=== PATIENT | female | born 1985 | race Caucasian/White ===

== ENCOUNTER 2016-11-10 00:28 | Emergency (ER) | payer OTHER ==
[~2016-11-10] VITALS: Ht 157.5 cm; Wt 83.9 kg
[2016-11-10 00:31] VITALS: BP 147/77
--- NOTE | 2016-11-10 01:55 | NUR ---
PT TAKEN TO BED 4
--- NOTE | 2016-11-10 02:29 | NUR ---
31 Y/O F BIBA C/O LOWER BACK PAIN , STARTED TODAY, NO TRAUMA NOR INJURY.
--- NOTE | 2016-11-10 02:29 | NUR ---
Dr. Boyce evaluating patient at bedside.
[2016-11-10] MEDS ORDERED: KETOROLAC 60 MG/2 ML VIAL IM ONE (02:35)
[2016-11-10] MEDS ORDERED: DIAZEPAM PFS 10 MG/2 ML SYR IM ONE (02:35)
--- NOTE | 2016-11-10 02:55 | NUR ---
PT RESTING IN BED, AWATING FOR DC PAPERWORK, VSS, NO S/S OF DISTRESS NOTED.
[2016-11-10 02:56] VITALS: BP 124/81
--- NOTE | 2016-11-10 03:14 | NUR ---
Patient discharged with v/s stable. Written and verbal after care instructions given and explained. Patient alert, oriented and verbalized understanding of instructions. Wheel Chair Assisted with by caregiver. All questions addressed prior to discharge. ID band removed. Patient advised to follow up with PMD THIS WK OR RETURN TO ER IF CONDITION WORSENS. Rx of valium, motrin, and norco given. Patient educated on indication of medication including possible reaction and side effects. Opportunity to ask questions provided and answered.
== END 2016-11-10 03:14 | disposition home or self-care (01) ==
LOC: MED 00:28
DX: M54.5 Low back pain (principal); Z98.890 Other specified postprocedural states
CPT/HCPCS: 81002; 81025; 96372; 99284; J1885; J3360

== ENCOUNTER 2017-09-21 07:20 | Emergency (ER) | payer OTHER ==
[~2017-09-21] VITALS: Ht 157.5 cm; Wt 81.6 kg
[2017-09-21 07:25] VITALS: BP 119/76
--- NOTE | 2017-09-21 07:26 | NUR ---
PATIENT PRESENTS TO ED WITH COMPLAINTS OF RIGHT FOOT PAIN. PATIENT STATES SHE INJURED FOOT OVER A YEAR AGO AND HAS INTERMITTENT PAIN AND SWELLING SINCE. PATIENT REPORTS PAIN IS WORSENING. MILD SWELLING NOTED AROUND RIGHT ANKLE, NON-PITTING. CAP REFILL ON RIGHT BIG TOE <3 SEC. PATIENT STATES PAIN OF 9/10 AT THIS TIME; VSS; PATIENT POSITIONED FOR COMFORT; HOB ELEVATED; BEDRAILS UP X1; BED DOWN. ER MD MADE AWARE OF PT STATUS.
[2017-09-21] MEDS ORDERED: DEXAMETHASONE 10 MG/ML VIAL IM ONE (08:05)
[2017-09-21] MEDS ORDERED: KETOROLAC 60 MG/2 ML VIAL IM ONE (08:05)
--- NOTE | 2017-09-21 08:50 | NUR ---
ИВАН WRAP APPLIED TO RIGHT FOOT, PATIENT TOLERATED WELL.
[2017-09-21 09:20] VITALS: BP 117/72
--- NOTE | 2017-09-21 09:20 | NUR ---
Patient discharged with v/s stable. Written and verbal after care instructions given and explained. Patient alert, oriented and verbalized understanding of instructions. Wheel Chair Assisted with to car. All questions addressed prior to discharge. ID band removed. Patient advised to follow up with PMD. Rx of VOLTAREN given. Patient educated on indication of medication including possible reaction and side effects. Opportunity to ask questions provided and answered.
== END 2017-09-21 09:20 | disposition home or self-care (01) ==
LOC: MED 07:20
DX: M10.071 Idiopathic gout, right ankle and foot (principal); G80.9 Cerebral palsy, unspecified
CPT/HCPCS: 73630; 96372; 99284; J1100; J1885; Q0092; 96374; 96375

== ENCOUNTER 2018-05-17 21:29 | Emergency (ER) | payer OTHER ==
[~2018-05-17] VITALS: Ht 157.5 cm; Wt 86.2 kg
[2018-05-17 21:30] VITALS: BP 137/81
--- NOTE | 2018-05-17 22:19 | NUR ---
PT AT RADIOLOGY AT THIS TIME, ONCE BACK PATIENT WILL BE WHEELCHAIRED TO BED 02
--- NOTE | 2018-05-17 22:35 | NUR ---
32F CC: CHEST AND BACK PAIN FOR 2 DAYS. STATES GENERAL BODY ACHES WHILE AT WORK. AOX4. ABLE TO VERBALIZE NEEDS. AFEBRILE. HX OF CEREBRAL PALSY. NO RX. EVEN UNLABORED BREATHING. DENIES CHEST PAIN AT THIS TIME. BED IN LOWEST POSITION. WILL CONTINUE TO MONITOR.
[2018-05-17 23:05] VITALS: BP 135/70
--- NOTE | 2018-05-17 23:05 | NUR ---
Patient discharged with v/s stable. Written and verbal after care instructions given and explained. Patient verbalized understanding. Ambulatory with steady gait. All questions addressed prior to discharge. Advised to follow up with PMD.
== END 2018-05-17 23:05 | disposition home or self-care (01) ==
LOC: MED 21:29
DX: R07.89 Other chest pain (principal); R05 Cough; M54.9 Dorsalgia, unspecified; G80.9 Cerebral palsy, unspecified
CPT/HCPCS: 71045; 81002; 81025; 93005; 99283

== ENCOUNTER 2018-08-03 00:13 | Emergency (ER) | payer OTHER ==
[~2018-08-03] VITALS: Ht 157.5 cm; Wt 90.5 kg
[2018-08-03 00:22] VITALS: BP 132/83
--- NOTE | 2018-08-03 00:22 | NUR ---
PT TAKEN TO BED 5
--- NOTE | 2018-08-03 00:25 | NUR ---
PT CAME INTO ER WITH C/O DISCOMFORT IN THE RIGHT EAR AND CONGESTION X 3 DAYS. PT STATED SHE HAS NO PAIN 0/10 BUT IS NOT ABLE TO HEAR CLEARLY ON THE RIGHT EAR. PT HAS BODY ACHES, DENIES FEVER, N/V/D. PT IS A/OX4. LUNG SOUNDS CLEAR BILATERAL. ER MD MADE AWARE, SAFETY MEASURES IN PLACE, BED RAIL UP X 1. FAMILY AT BEDSIDE.
[2018-08-03] MEDS ORDERED: PENICILLIN V POTASSIUM 250 MG TAB PO ONE (00:40)
[2018-08-03 01:19] VITALS: BP 132/83
--- NOTE | 2018-08-03 01:19 | NUR ---
Patient discharged with v/s stable. Written and verbal after care instructions given and explained. Patient alert, oriented and verbalized understanding of instructions. Ambulatory with steady gait. All questions addressed prior to discharge. ID band removed. Patient advised to follow up with PMD. Rx of Penicillin VK 500mg and Ibuprofen 600mg given. Patient educated on indication of medication including possible reaction and side effects. Opportunity to ask questions provided and answered.
== END 2018-08-03 01:19 | disposition home or self-care (01) ==
LOC: MED 00:13
DX: H66.91 Otitis media, unspecified, right ear (principal)
CPT/HCPCS: 99283

== ENCOUNTER 2018-08-04 00:18 | Emergency (ER) | payer OTHER ==
[~2018-08-04] VITALS: Ht 157.5 cm; Wt 92.5 kg
[2018-08-04 00:38] VITALS: BP 130/85
--- NOTE | 2018-08-04 01:53 | NUR ---
PT AMBULATED TO ER BED 8
--- NOTE | 2018-08-04 02:00 | NUR ---
PT CAME INTO ER WITH C/O RASH POSSIBLE ALLERGIC REACTION TO PENICILIIN PER PT. PT WAS HERE IN ER YESTERDAY AND RECIEVED PENICILLIN MEDICATION FOR EAR INFECTION. PT STATED SHE STARTED TO GET AN ITCHY RASH ON ARMS, NECK, BACK, CHEST. PT PAIN LEVEL IS 0/10 AT THIS TIME. ER MD MADE AWARE OF STATUS. SAFETY MEASURES IN PLACE. [facility] HX-CEREBAL PALSY
[2018-08-04] MEDS ORDERED: diphenhydrAMINE 50 MG CAP PO ONE (04:10)
--- NOTE | 2018-08-04 04:18 | NUR ---
PT REQUESTED TO HAVE SOME BENADRYL PRIOR TO D/C. PT STATED SHE WAS NOT DRIVING HOME ANDWAS GOING HOME VIA [facility]. ER MADE AWARE
[2018-08-04 04:30] VITALS: BP 130/85
--- NOTE | 2018-08-04 04:30 | NUR ---
Patient discharged with v/s stable. Written and verbal after care instructions given and explained. Patient alert, oriented and verbalized understanding of instructions. Ambulatory with steady gait. All questions addressed prior to discharge. ID band removed. Patient advised to follow up with PMD. Rx of BENADRYL AND PREDNISONE WAS given. Patient educated on indication of medication including possible reaction and side effects. Opportunity to ask questions provided and answered.
== END 2018-08-04 04:30 | disposition home or self-care (01) ==
LOC: MED 00:18
DX: R21 Rash and other nonspecific skin eruption (principal); T36.0X5A Adverse effect of penicillins, initial encounter; Y92.89 Other specified places as the place of occurrence of the external cause
CPT/HCPCS: 99283; Q0163

== ENCOUNTER 2018-08-11 03:48 | Emergency (ER) | payer OTHER ==
[~2018-08-11] VITALS: Ht 157.5 cm; Wt 99.8 kg
[2018-08-11 03:55] VITALS: BP 138/69
--- NOTE | 2018-08-11 03:55 | NUR ---
TO BED # 4 AMBULATORY
--- NOTE | 2018-08-11 04:04 | NUR ---
PT TAKEN TO RAD VIA WHEELCHAIR
--- NOTE | 2018-08-11 04:07 | NUR ---
33 Y/O F PRSENTS TO THE ED W/C/O RT SHOULDER PAIN. S/P MECHANICAL FALL YESTERDAY. +CMS. CAP REFILL<3. -ECCHYMOSIS. NO OBVIOUS DEFORMATIES. GCS 15. SKIN WARM AND DRY. PT DENIES ANY FEVER, CP, SOB, OR COUGH AT THIS TIME; PT STATES 0/10 PAIN AT THIS TIME; VSS; PATIENT POSITIONED FOR COMFORT; HOB ELEVATED; BEDRAILS UP X2; BED DOWN.
--- NOTE | 2018-08-11 04:12 | NUR ---
PT RETURNED FROM X-RAY AND PLACED IN BED 5.
--- NOTE | 2018-08-11 04:15 | NUR ---
DR. DAVID BEDSIDE EVALUATING PT
[2018-08-11] MEDS ORDERED: KETOROLAC 60 MG/2 ML VIAL IM ONE (04:20)
== END 2018-08-11 04:53 | disposition home or self-care (01) ==
LOC: MED 03:48
DX: M25.511 Pain in right shoulder (principal); W19.XXXA Unspecified fall, initial encounter; Y93.89 Activity, other specified; Y92.89 Other specified places as the place of occurrence of the external cause; Y99.8 Other external cause status
CPT/HCPCS: 73030; 96372; 99283; J1885

== ENCOUNTER 2019-11-04 03:35 | Emergency (ER) | payer OTHER ==
[~2019-11-04] VITALS: Ht 157.5 cm; Wt 90.7 kg
[2019-11-04 03:41] VITALS: BP 155/84
--- NOTE | 2019-11-04 03:41 | NUR ---
PT TAKEN TO BED 4
--- NOTE | 2019-11-04 04:07 | NUR ---
34 Y/O F PRESENTS TO ED C/O VAGINAL SPOTTING X 1 HOUR AGO. PT STATES VAGINAL SPOTTING IS IN MINIMAL AMOUNT AND ALSO C/O LOWER ABD CRAMPING 2/10 X 1 HOUR AGO. PT STATES VAGINAL SPOTTING IS LESS THAN A VAL SIZE. PT IS 7 WEEKS WITH HER 2ND BABY. NO HX OF MISCARRIAGE. VSS. WILL CONTINUE TO MONITOR. HX- CEREBRAL PALSY ALLERGIES: PCN
--- NOTE | 2019-11-04 05:02 | NUR ---
LABS COLLECTED AND URINE AND WALKED OVER TO LAB.
[2019-11-04 05:10] LABS: APPEARANCE,URINE SL CLOUDY (CLEAR); BILIRUBIN,URINE NEGATIVE (NEGATIVE); BLOOD, URINE 2+ (NEGATIVE); COLOR,URINE YELLOW (YELLOW); LEUKOCYTE ESTERASE ,URINE NEGATIVE (NEGATIVE); NITRITE, URINE NEGATIVE (NEGATIVE); PH,URINE 6.5 (5.0-9.0); UGLUCOSE NEGATIVE (NEGATIVE)
[2019-11-04 05:19] LABS: ANION GAP 14.1 (8-16); CARBON DIOXIDE 23.2 mmol/L (21-32); CREATININE 0.6 mg/dL (0.6-1.3); POTASSIUM 3.3 mmol/L (3.5-5.1)
--- NOTE | 2019-11-04 05:25 | NUR ---
Ultrasound at bedside.
[2019-11-04 05:36] LABS: HEMATOCRIT 32.2 % (36-48); HEMOGLOBIN 10.1 g/dL (12.0-16.0); MEAN CORPUSCULAR HEMOGLOBIN 22 pg (27-31); MEAN CORPUSCULAR VOLUME 71.4 fL (80-94); RED BLOOD CELL COUNT(AUTO) 4.52 MIL/uL (4.20-5.40)
[2019-11-04 05:37] LABS: BASOPHILS % (AUTO) 1.3 % (0.0-2.0); LYMPHOCYTES % (AUTO) 15.4 % (20.5-51.1); MEAN CORPUSCULAR HGB CONC 31 g/dL (33-37); MONOCYTES % (AUTO) 7.1 % (1.7-9.3); NEUTROPHILS % (AUTO) 71.2 % (42.2-75.2); PLATELET COUNT (AUTO) 160 K/uL (140-450); RED CELL DISTRIBUTION WIDTH 17.1 % (11.6-13.7)
[2019-11-04 05:38] LABS: EOSINOPHILS # (AUTO) 0.4 K/uL (0-0.4); LYMPHOCYTES # (AUTO) 1.2 K/uL (2.5-16.5); MONOCYTES # (AUTO) 0.6 K/uL (0.8-1.0); NEUTROPHILS # (AUTO) 5.7 K/uL (1.8-7.7)
[2019-11-04 05:39] LABS: BASOPHILS # (AUTO) 0.1 K/uL (0.00-0.22)
[2019-11-04 06:05] LABS: WBC,URINE 0-5 /HPF (0-5)
[2019-11-04 06:20] VITALS: BP 155/84
--- NOTE | 2019-11-04 06:20 | NUR ---
Patient discharged with v/s stable. Written and verbal after care instructions given and explained. Patient verbalized understanding. Wheel Chair Assisted with to car. All questions addressed prior to discharge. Advised to follow up with PMD.
== END 2019-11-04 06:20 | disposition home or self-care (01) ==
LOC: MED 03:35
DX: O20.8 Other hemorrhage in early pregnancy (principal); O10.911 Unspecified pre-existing hypertension complicating pregnancy, first trimester; Z3A.01 Less than 8 weeks gestation of pregnancy; Z88.0 Allergy status to penicillin
CPT/HCPCS: 36415; 76801; 80048; 81001; 81025; 84702; 85025; 86900; 86901; 99284; Q0092